=== PATIENT | female | born 1980 ===

== ENCOUNTER 2022-04-03 09:08 | Outpatient (CLI) | payer OTHER, SELFPAY ==
[2022-04-03 13:58] LABS: Albumin* 4.7 g/dL (3.3-5.0); Chloride* 105 mmol/L (96-114)
[2022-04-03 13:59] LABS: Sodium* 135 mmol/L (135-149)
[2022-04-03 14:00] LABS: Cholesterol* 180 mg/dL (90-199)
[2022-04-03 14:01] LABS: Alanine Aminotransferase* 37 U/L (4-35); Alkaline Phosphatase* 54 U/L (40-150); Aspartate Amino Transferase* 29 U/L (12-35); Bilirubin Total* 0.6 mg/dL (0.1-1.5); Blood Urea Nitrogen* 13 mg/dL (5-24); Calcium* 9.4 mg/dL (8.4-10.6); Carbon Dioxide* 24 mmol/L (20-32); Creatinine* 0.7 mg/dL (0.5-1.5); Estimated Glomerular Filt Rate 112 ml/min; Glucose* 102 mg/dL (60-115); HDL Cholesterol* 51 mg/dL (>=50); LDL Cholesterol Calculated 94 mg/dL (<100); Potassium* 4.2 mmol/L (3.6-5.1); Total Protein* 7.4 g/dL (6.0-8.3); Triglycerides* 176 mg/dL (40-149)
== END 2022-04-03 09:09 | disposition home or self-care (01) ==
PROVIDERS: PCP Emergency Medicine; Visit Provider Emergency Medicine
DX: Z00.00 Encounter for general adult medical examination without abnormal findings (principal); Z01.818 Encounter for other preprocedural examination; F10.10 Alcohol abuse, uncomplicated; E03.9 Hypothyroidism, unspecified; Z13.6 Encounter for screening for cardiovascular disorders
CPT/HCPCS: 80053; 80061; 84443